=== PATIENT | female | born 1950 | race Caucasian/White ===

== ENCOUNTER 2021-06-30 01:54 | Inpatient (IN) | payer MEDICARE, OTHER ==
[~2021-06-30] VITALS: Ht 172.7 cm; Wt 55.1 kg
[2021-07-01] MEDS ORDERED: ANORO ELLIPTA1 EACH INH (05:20)
[2021-07-01] MEDS ORDERED: HYDROCODON-ACE1 EAC6 PO (05:21)
[2021-07-01] MEDS ORDERED: HYDROCHLOROTHIA25 MG PO (05:21)
[2021-07-01] MEDS ORDERED: LORAZEPAM0.5 MG PO (05:22)
[2021-07-01] MEDS ORDERED: LISINOPRIL20 MG PO (05:22)
[2021-07-01] MEDS ORDERED: COREG 12.5MG12.5 MG PO (05:23)
[2021-07-01] MEDS ORDERED: FEROSUL325 MG PO (05:23)
[2021-07-01] MEDS ORDERED: MELOXICAM15 MG PO ×2 (05:23→10:39)
[2021-07-01] MEDS ORDERED: POTASSIUM CHLO20 ME2 PO (05:24)
[2021-07-01 07:01] LABS: HEMOGLOBIN 9.2 gm/dl (12.3-15.3); RED BLOOD COUNT 3.23 M/UL (4.00-5.10); WHITE BLOOD COUNT 21.2 K/UL (4.5-11.0)
[2021-07-01] MEDS ORDERED: PROZAC 20 MG CA20 MG PO (07:36)
[2021-07-01] MEDS ORDERED: PROAIR HFA8.5 GM INH (10:38)
[2021-07-01] MEDS ORDERED: PHENERGAN 25 MG25 M1 PO (10:40)
[2021-07-02 11:13] LABS: HBSAG SCREEN Negative (Negative); HEP A AB, IGM Negative (Negative); HEP B CORE AB, IGM Negative (Negative); HEP C VIRUS AB <0.1 (0.0-0.9)
[2021-07-03 03:53] LABS: HEMOGLOBIN 7.5 gm/dl (12.3-15.3); RED BLOOD COUNT 2.51 M/UL (4.00-5.10); WHITE BLOOD COUNT 15.5 K/UL (4.5-11.0)
[2021-07-04 08:44] LABS: HEMOGLOBIN 7.4 gm/dl (12.3-15.3); RED BLOOD COUNT 2.49 M/UL (4.00-5.10); WHITE BLOOD COUNT 14.5 K/UL (4.5-11.0)
[2021-07-05 03:27] LABS: HEMOGLOBIN 7.6 gm/dl (12.3-15.3); RED BLOOD COUNT 2.58 M/UL (4.00-5.10); WHITE BLOOD COUNT 13.7 K/UL (4.5-11.0)
[2021-07-06 03:18] LABS: RED BLOOD COUNT 2.45 M/UL (4.00-5.10); WHITE BLOOD COUNT 13.9 K/UL (4.5-11.0)
[2021-07-06 03:21] LABS: HEMOGLOBIN 6.8 gm/dl (12.3-15.3)
--- NOTE | 2021-07-06 17:54 | NUR ---
PATIENT TRANSPORTED TO [facility] PER PCU STAFF AND STUDENT NURSES. ONE UNIT OF BLOOD TO BE GIVEN PER DIALYSIS NURSE.
[2021-07-07 10:14] LABS: WHITE BLOOD COUNT 10.7 K/UL (4.5-11.0)
[2021-07-07 10:16] LABS: HEMOGLOBIN 9.5 gm/dl (12.3-15.3); RED BLOOD COUNT 3.33 M/UL (4.00-5.10)
--- NOTE | 2021-07-07 18:43 | NUR ---
DR MOCTEZUMA NOTIFIED OF PTS C/O RIB PAIN NEW ORDERS RECEIVED
[2021-07-08 04:07] LABS: HEMOGLOBIN 9.3 gm/dl (12.3-15.3); RED BLOOD COUNT 3.23 M/UL (4.00-5.10); WHITE BLOOD COUNT 10.2 K/UL (4.5-11.0)
--- NOTE | 2021-07-08 05:20 | NUR ---
PICC LINE DRESSING CHANGED VIA CLEAN TECHNIQUE. PT TOLERATED VERY WELL.
--- NOTE | 2021-07-08 13:29 | NUR ---
07/08/20 1330 SPOKE WITH DAUGHTER, UPDATED ON PT STATUS, SURGERY, DIALYSIS CATH PLACEMENT, CXR AND START OF ABT FOR PNEUMONIA.
[2021-07-09 04:19] LABS: HEMOGLOBIN 9.1 gm/dl (12.3-15.3); RED BLOOD COUNT 3.08 M/UL (4.00-5.10); WHITE BLOOD COUNT 10.8 K/UL (4.5-11.0)
--- NOTE | 2021-07-09 22:18 | NUR ---
PT ASKING FOR PAIN MEDICIATIONS STATES THAT MEDICINES ARENT HELPING. NOTIFIED DR MOCTEZUMA OF FINDINGS ORDERS RECIEVED.
[2021-07-10 07:21] LABS: HEMOGLOBIN 8.4 gm/dl (12.3-15.3); RED BLOOD COUNT 2.85 M/UL (4.00-5.10); WHITE BLOOD COUNT 10.5 K/UL (4.5-11.0)
--- NOTE | 2021-07-13 15:45 | NUR ---
PT TRASFERRED DOWN FOR DIALYSIS AT THIS TIME.
[2021-07-14 03:46] LABS: HEMOGLOBIN 7.6 gm/dl (12.3-15.3); RED BLOOD COUNT 2.61 M/UL (4.00-5.10); WHITE BLOOD COUNT 5.9 K/UL (4.5-11.0)
[2021-07-15] MEDS ORDERED: AMLODIPINE BESYL5 MG PO (09:58)
[2021-07-15] MEDS ORDERED: CARVEDILOL25 MG PO (09:58)
[2021-07-15] MEDS ORDERED: HYDRALAZINE HCL25 MG PO (09:58)
[2021-07-16 03:24] LABS: HEMOGLOBIN 7.8 gm/dl (12.3-15.3); RED BLOOD COUNT 2.66 M/UL (4.00-5.10)
--- NOTE | 2021-07-16 09:07 | NUR ---
PT TAKEN TO DIALYSIS
[2021-07-17 02:48] LABS: HEMOGLOBIN 7.3 gm/dl (12.3-15.3); RED BLOOD COUNT 2.44 M/UL (4.00-5.10)
[2021-07-17 02:57] LABS: WHITE BLOOD COUNT 4.2 K/UL (4.5-11.0)
[2021-07-18 03:28] LABS: RED BLOOD COUNT 2.27 M/UL (4.00-5.10); WHITE BLOOD COUNT 5.1 K/UL (4.5-11.0)
[2021-07-18 03:36] LABS: HEMOGLOBIN 6.4 gm/dl (12.3-15.3)
[2021-07-19 10:35] LABS: HEMOGLOBIN 7.6 gm/dl (12.3-15.3); WHITE BLOOD COUNT 5.2 K/UL (4.5-11.0)
[2021-07-19 10:39] LABS: RED BLOOD COUNT 2.61 M/UL (4.00-5.10)
[2021-07-19] MEDS ORDERED: HUMIBID LA TAB600 MG PO (12:38)
[2021-07-19] MEDS ORDERED: IPRAT-ALBUT 0.5-3 ML NEB (12:38)
[2021-07-19] MEDS ORDERED: POLYETHYLENE GL17 GM PO (12:38)
[2021-07-19] MEDS ORDERED: DOCUSATE SODIU100 MG PO (12:38)
--- NOTE | 2021-07-19 14:56 | NUR ---
REPORT CALLED TO [facility] TO [facility].
== END 2021-07-19 14:50 | disposition home health service (06) | DRG 673 ==
LOC: CCU 07-01 04:56 → PROG CARE 07-01 04:56
PROVIDERS: Internal Medicine; Internal Medicine Nephrology; ADMIT Internal Medicine
PROC: 5A1D70Z Performance of Urinary Filtration, Intermittent, Less than 6 Hours Per Day (ICD-10-PCS; 2021-07-02)
PROC: 5A1D70Z Performance of Urinary Filtration, Intermittent, Less than 6 Hours Per Day (ICD-10-PCS; 2021-07-03)
PROC: B24BZZZ Ultrasonography of Heart with Aorta (ICD-10-PCS; 2021-07-05)
PROC: 5A1D70Z Performance of Urinary Filtration, Intermittent, Less than 6 Hours Per Day (ICD-10-PCS; 2021-07-05)
PROC: 5A1D70Z Performance of Urinary Filtration, Intermittent, Less than 6 Hours Per Day (ICD-10-PCS; 2021-07-07)
PROC: 0JH63XZ Insertion of Tunneled Vascular Access Device into Chest Subcutaneous Tissue and Fascia, Percutaneous Approach (ICD-10-PCS; principal; 2021-07-08)
PROC: 02HV33Z Insertion of Infusion Device into Superior Vena Cava, Percutaneous Approach (ICD-10-PCS; 2021-07-08)
PROC: B548ZZA Ultrasonography of Superior Vena Cava, Guidance (ICD-10-PCS; 2021-07-08)
PROC: 5A1D70Z Performance of Urinary Filtration, Intermittent, Less than 6 Hours Per Day (ICD-10-PCS; 2021-07-08)
PROC: 5A1D70Z Performance of Urinary Filtration, Intermittent, Less than 6 Hours Per Day (ICD-10-PCS; 2021-07-10)
PROC: 5A0935A Assistance with Respiratory Ventilation, Less than 24 Consecutive Hours, High Flow/Velocity Cannula (ICD-10-PCS; 2021-07-11)
PROC: 5A1D70Z Performance of Urinary Filtration, Intermittent, Less than 6 Hours Per Day (ICD-10-PCS; 2021-07-11)
PROC: 5A1D70Z Performance of Urinary Filtration, Intermittent, Less than 6 Hours Per Day (ICD-10-PCS; 2021-07-13)
PROC: 5A1D70Z Performance of Urinary Filtration, Intermittent, Less than 6 Hours Per Day (ICD-10-PCS; 2021-07-16)
PROC: 5A0945A Assistance with Respiratory Ventilation, 24-96 Consecutive Hours, High Flow/Velocity Cannula (ICD-10-PCS; 2021-07-17)
PROC: 5A1D70Z Performance of Urinary Filtration, Intermittent, Less than 6 Hours Per Day (ICD-10-PCS; 2021-07-17)
PROC: 30233N1 Transfusion of Nonautologous Red Blood Cells into Peripheral Vein, Percutaneous Approach (ICD-10-PCS; 2021-07-18)
PROC: 5A1D70Z Performance of Urinary Filtration, Intermittent, Less than 6 Hours Per Day (ICD-10-PCS; 2021-07-18)
PROC: 5A1D70Z Performance of Urinary Filtration, Intermittent, Less than 6 Hours Per Day (ICD-10-PCS; 2021-07-19)
DX: N17.0 Acute kidney failure with tubular necrosis (principal); J96.21 Acute and chronic respiratory failure with hypoxia; I50.33 Acute on chronic diastolic (congestive) heart failure; J18.9 Pneumonia, unspecified organism; I13.2 Hypertensive heart and chronic kidney disease with heart failure and with stage 5 chronic kidney disease, or end stage renal disease; N30.00 Acute cystitis without hematuria; J44.0 Chronic obstructive pulmonary disease with (acute) lower respiratory infection; B37.0 Candidal stomatitis; R64 Cachexia; E87.1 Hypo-osmolality and hyponatremia; I42.9 Cardiomyopathy, unspecified; Z68.1 Body mass index [BMI] 19.9 or less, adult; N18.6 End stage renal disease; Z20.822 Contact with and (suspected) exposure to COVID-19; E87.6 Hypokalemia; D63.1 Anemia in chronic kidney disease; R79.89 Other specified abnormal findings of blood chemistry; K14.0 Glossitis; F17.210 Nicotine dependence, cigarettes, uncomplicated; M81.0 Age-related osteoporosis without current pathological fracture; I25.10 Atherosclerotic heart disease of native coronary artery without angina pectoris; I08.3 Combined rheumatic disorders of mitral, aortic and tricuspid valves; G89.4 Chronic pain syndrome; F41.9 Anxiety disorder, unspecified; Z96.1 Presence of intraocular lens; I73.9 Peripheral vascular disease, unspecified; Z99.2 Dependence on renal dialysis; Z71.6 Tobacco abuse counseling; Z99.81 Dependence on supplemental oxygen; Z90.710 Acquired absence of both cervix and uterus; Z98.42 Cataract extraction status, left eye; Z98.41 Cataract extraction status, right eye; Z98.890 Other specified postprocedural states; Z80.9 Family history of malignant neoplasm, unspecified; Z87.01 Personal history of pneumonia (recurrent)
CPT/HCPCS: ECHO; 36415; 36600; 71045; 71046; 71110; 71250; 72070; 77001; 80048; 80053; 80074; 80202; 81001; 82550; 82553; 82728; 82803; 82962; 83540; 83550; 83735; 83880; 84100; 84484; 85025; 85027; 86140; 86850; 86900; 86901; 86920; 90935; 90937; 93005; 93306; 94640; 94664; 94760; 97116; 97116-GP-CQ; 97162; 97530-GP-CQ; C1752; C1769; C1788; J1100; J1642; J1644; J2185; J2405; J2704; J3010; J3370; J7030; J7040; J7070; J7120; P9016; P9047; U0002

== ENCOUNTER 2021-07-27 00:44 | Inpatient (IN) | payer MEDICARE, OTHER ==
[~2021-07-27] VITALS: Ht 172.7 cm; Wt 59.9 kg
[~2021-07-27 00:44] MED LIST: AMLODIPINE BESYL5 MG PO; ANORO ELLIPTA1 EACH INH; CARVEDILOL25 MG PO; COREG 12.5MG12.5 MG PO; DOCUSATE SODIU100 MG PO; FEROSUL325 MG PO; HUMIBID LA TAB600 MG PO; HYDRALAZINE HCL25 MG PO; HYDROCHLOROTHIA25 MG PO; HYDROCODON-ACE1 EAC6 PO; IPRAT-ALBUT 0.5-3 ML NEB; LISINOPRIL20 MG PO; LORAZEPAM0.5 MG PO; MELOXICAM15 MG PO; PHENERGAN 25 MG25 M1 PO; POLYETHYLENE GL17 GM PO; POTASSIUM CHLO20 ME2 PO; PROAIR HFA8.5 GM INH; PROZAC 20 MG CA20 MG PO
[2021-07-27 07:39] LABS: HEMOGLOBIN 7.2 gm/dl (12.3-15.3); RED BLOOD COUNT 2.48 M/UL (4.00-5.10); WHITE BLOOD COUNT 6.5 K/UL (4.5-11.0)
[2021-07-27] MEDS ORDERED: PROZAC 20 MG CA20 MG PO (09:40)
[2021-07-27] MEDS ORDERED: CARVEDILOL12.5 MG PO (09:40)
[2021-07-27] MEDS ORDERED: HYDROCHLOROTHIA25 MG PO (09:41)
[2021-07-27] MEDS ORDERED: LISINOPRIL20 MG PO (09:41)
[2021-07-28 03:45] LABS: RED BLOOD COUNT 2.19 M/UL (4.00-5.10); WHITE BLOOD COUNT 11.7 K/UL (4.5-11.0)
[2021-07-28 03:46] LABS: HEMOGLOBIN 6.5 gm/dl (12.3-15.3)
[2021-07-29 04:01] LABS: HEMOGLOBIN 7.3 gm/dl (12.3-15.3); WHITE BLOOD COUNT 12.2 K/UL (4.5-11.0)
[2021-07-29 04:09] LABS: RED BLOOD COUNT 2.52 M/UL (4.00-5.10)
[2021-07-30 02:55] LABS: RED BLOOD COUNT 2.48 M/UL (4.00-5.10); WHITE BLOOD COUNT 12.2 K/UL (4.5-11.0)
[2021-07-30 12:13] LABS: HBSAG SCREEN Negative (Negative); HEP A AB, IGM Negative (Negative); HEP B CORE AB, IGM Negative (Negative); HEP C VIRUS AB <0.1 (0.0-0.9)
--- NOTE | 2021-07-30 22:17 | NUR ---
PT TAKEN TO CT VIA BED WITH RN AND TECH. SHE TOLERATED PROCEDURE VERY WELL.
[2021-07-31 02:59] LABS: HEMOGLOBIN 8.9 gm/dl (12.3-15.3)
[2021-07-31 03:00] LABS: RED BLOOD COUNT 3.1 M/UL (4.00-5.10); WHITE BLOOD COUNT 18.1 K/UL (4.5-11.0)
[2021-08-01 03:23] LABS: HEMOGLOBIN 9.4 gm/dl (12.3-15.3); RED BLOOD COUNT 3.17 M/UL (4.00-5.10); WHITE BLOOD COUNT 21.8 K/UL (4.5-11.0)
[2021-08-01 13:11] LABS: ANTI-DSDNA ANTIBODIES <1 IU/mL (0-9)
[2021-08-02 02:07] LABS: HEMOGLOBIN 8.7 gm/dl (12.3-15.3); RED BLOOD COUNT 2.93 M/UL (4.00-5.10); WHITE BLOOD COUNT 17.4 K/UL (4.5-11.0)
[2021-08-02 11:15] LABS: ANTIGLOMERULAR BM AB 4 units (0-20)
[2021-08-03 02:05] LABS: HEMOGLOBIN 8.2 gm/dl (12.3-15.3); RED BLOOD COUNT 2.75 M/UL (4.00-5.10); WHITE BLOOD COUNT 16.7 K/UL (4.5-11.0)
[2021-08-03 18:13] LABS: ANTIMYELOPEROXIDASE (MPO) ABS <9.0 U/mL (0.0-9.0); ANTIPROTEINASE 3 (PR-3) ABS <3.5 U/mL (0.0-3.5); ATYPICAL PANCA <1:20 titer (Neg:<1:20); CYTOPLASMIC (C-ANCA) <1:20 titer (Neg:<1:20); PERINUCLEAR (P-ANCA) <1:20 titer (Neg:<1:20)
[2021-08-04 07:08] LABS: HEMOGLOBIN 8.7 gm/dl (12.3-15.3); RED BLOOD COUNT 2.89 M/UL (4.00-5.10); WHITE BLOOD COUNT 13.7 K/UL (4.5-11.0)
[2021-08-05 02:26] LABS: RED BLOOD COUNT 2.68 M/UL (4.00-5.10); WHITE BLOOD COUNT 12.1 K/UL (4.5-11.0)
[2021-08-06 02:40] LABS: HEMOGLOBIN 7.6 gm/dl (12.3-15.3); RED BLOOD COUNT 2.49 M/UL (4.00-5.10); WHITE BLOOD COUNT 12.9 K/UL (4.5-11.0)
[2021-08-07 03:31] LABS: RED BLOOD COUNT 2.3 M/UL (4.00-5.10); WHITE BLOOD COUNT 10.1 K/UL (4.5-11.0)
[2021-08-07 03:35] LABS: HEMOGLOBIN 6.8 gm/dl (12.3-15.3)
[2021-08-07 12:39] LABS: HEMOGLOBIN 6.8 gm/dl (12.3-15.3)
[2021-08-08 02:46] LABS: RED BLOOD COUNT 1.6 M/UL (4.00-5.10); WHITE BLOOD COUNT 12.7 K/UL (4.5-11.0)
[2021-08-08 02:47] LABS: HEMOGLOBIN 4.7 gm/dl (12.3-15.3)
[2021-08-08 16:28] LABS: HEMOGLOBIN 10.2 gm/dl (12.3-15.3)
[2021-08-09 02:44] LABS: HEMOGLOBIN 8.9 gm/dl (12.3-15.3); WHITE BLOOD COUNT 13.2 K/UL (4.5-11.0)
[2021-08-09 02:52] LABS: RED BLOOD COUNT 3.14 M/UL (4.00-5.10)
[2021-08-10 03:42] LABS: HEMOGLOBIN 8.1 gm/dl (12.3-15.3); RED BLOOD COUNT 2.84 M/UL (4.00-5.10); WHITE BLOOD COUNT 14.1 K/UL (4.5-11.0)
[2021-08-11 04:50] LABS: HEMOGLOBIN 6.8 gm/dl (12.3-15.3); RED BLOOD COUNT 2.36 M/UL (4.00-5.10); WHITE BLOOD COUNT 9.6 K/UL (4.5-11.0)
[2021-08-11 12:01] LABS: HEMOGLOBIN 7.2 gm/dl (12.3-15.3)
[2021-08-11 20:02] LABS: HEMOGLOBIN 7.9 gm/dl (12.3-15.3)
[2021-08-11 20:10] LABS: RED BLOOD COUNT 2.75 M/UL (4.00-5.10); WHITE BLOOD COUNT 12.3 K/UL (4.5-11.0)
[2021-08-12 04:08] LABS: WHITE BLOOD COUNT 10.2 K/UL (4.5-11.0)
[2021-08-12 04:26] LABS: HEMOGLOBIN 6.8 gm/dl (12.3-15.3); RED BLOOD COUNT 2.36 M/UL (4.00-5.10)
[2021-08-12 12:06] LABS: HEMOGLOBIN 7.4 gm/dl (12.3-15.3)
[2021-08-13 02:49] LABS: RED BLOOD COUNT 2.31 M/UL (4.00-5.10); WHITE BLOOD COUNT 10.7 K/UL (4.5-11.0)
[2021-08-13 03:00] LABS: HEMOGLOBIN 6.7 gm/dl (12.3-15.3)
--- NOTE | 2021-08-13 03:01 | NUR ---
CALLED [facility] TO DR KENYON. PT TO GET DIAYLSIS TODAY AND PER DR URBAN BLOOD TO BE GIVEN DURING DIAYLSIS.
[2021-08-13 20:56] LABS: HEMOGLOBIN 8.2 gm/dl (12.3-15.3)
[2021-08-14 04:25] LABS: HEMOGLOBIN 7.5 gm/dl (12.3-15.3); RED BLOOD COUNT 2.54 M/UL (4.00-5.10)
--- NOTE | 2021-08-14 08:42 | NUR ---
0830 TITRATED PT HFNC SLOWLY FROM 4 L TO 15 WHILE PT WAS SOB IN TRIPOD POSITION AT SIDE OF BED. CALLED RESPIRATORY TO BRING BIPAP THAT PT ALREADY HAS STANDING ORDERS FOR. RT CAME TO BEDSIDE TO GIVE PT BREATHING TX. PT SAT IMPROVED FROM 79% TO 92% ALREADY. WCTM . WILL NOTIFY
--- NOTE | 2021-08-15 08:26 | NUR ---
SPOKE TO LUCIO SHIPMAN, ABOUT RE-CONSULT. SHE WILL DISCUSS WITH JARETT.
[2021-08-15 09:45] LABS: HEMOGLOBIN 7.7 gm/dl (12.3-15.3); RED BLOOD COUNT 2.62 M/UL (4.00-5.10)
[2021-08-15 09:53] LABS: WHITE BLOOD COUNT 11.9 K/UL (4.5-11.0)
[2021-08-15 18:22] LABS: BODY FLUID SOURCE PLEURAL
[2021-08-15 18:24] LABS: MONONUCLEAR CELLS 85 (75-100); POLYMORPHONUCLEAR % 15 (0-25); RBC (AUTOMATED) 300 (0-100000); WBC (AUTOMATED) 81 (0-500)
[2021-08-15 18:32] LABS: LDH, BODY FLUID 54 U/L; TOTAL PROTEIN, BODY FLUID 1.4 gm/dL
[2021-08-16 04:29] LABS: RED BLOOD COUNT 2.4 M/UL (4.00-5.10); WHITE BLOOD COUNT 12.8 K/UL (4.5-11.0)
[2021-08-16 05:10] LABS: HEMOGLOBIN 6.9 gm/dl (12.3-15.3)
--- NOTE | 2021-08-16 11:26 | NUR ---
PATIENT DRESSING TO COCCYX CHANGED, WOUND WITH SLOUGH IN BASE PINK EDGES. PATIENT TOLERATED DRESSING CHANGE WELL
[2021-08-17 10:12] LABS: RED BLOOD COUNT 2.21 M/UL (4.00-5.10); WHITE BLOOD COUNT 12.3 K/UL (4.5-11.0)
[2021-08-17 10:16] LABS: HEMOGLOBIN 6.5 gm/dl (12.3-15.3)
--- NOTE | 2021-08-17 11:32 | NUR ---
PER MD MARQUEZ GIVE PATIENT 2 U PRBC'S DURING DIALYSIS TODAY. DIALYSIS STAFF AWARE, UNIT ONE INFUSING.
--- NOTE | 2021-08-17 13:52 | NUR ---
PATIENT RETURNS TO FLOOR FROM DIALYSIS. SHE HAD 3LITERS REMOVED. PATIENT TOLERATED WELL. ORDERED TRAY. WILL CONTINUE TO MONITOR
[2021-08-17 14:34] LABS: WHITE BLOOD COUNT 9.6 K/UL (4.5-11.0)
[2021-08-17 14:37] LABS: HEMOGLOBIN 10.8 gm/dl (12.3-15.3); RED BLOOD COUNT 3.73 M/UL (4.00-5.10)
[2021-08-18 08:41] LABS: RED BLOOD COUNT 3.86 M/UL (4.00-5.10)
[2021-08-18 08:42] LABS: WHITE BLOOD COUNT 12.9 K/UL (4.5-11.0)
[2021-08-19 04:26] LABS: HEMOGLOBIN 9.8 gm/dl (12.3-15.3); RED BLOOD COUNT 3.48 M/UL (4.00-5.10); WHITE BLOOD COUNT 11.4 K/UL (4.5-11.0)
[2021-08-20 03:22] LABS: HEMOGLOBIN 10.5 gm/dl (12.3-15.3); RED BLOOD COUNT 3.63 M/UL (4.00-5.10); WHITE BLOOD COUNT 10.8 K/UL (4.5-11.0)
[2021-08-22 04:18] LABS: HEMOGLOBIN 9.5 gm/dl (12.3-15.3); RED BLOOD COUNT 3.33 M/UL (4.00-5.10); WHITE BLOOD COUNT 8.9 K/UL (4.5-11.0)
[2021-08-23 03:58] LABS: RED BLOOD COUNT 3.5 M/UL (4.00-5.10); WHITE BLOOD COUNT 8.7 K/UL (4.5-11.0)
[2021-08-23 09:15] LABS: HBSAG SCREEN Negative (Negative); HEP A AB, IGM Negative (Negative); HEP B CORE AB, IGM Negative (Negative); HEP C VIRUS AB <0.1 (0.0-0.9)
[2021-08-23] MEDS ORDERED: IPRAT-ALBUT 0.5-3 ML NEB (11:43)
[2021-08-23] MEDS ORDERED: MEGACE 400400 MG/10 PO (11:43)
[2021-08-23] MEDS ORDERED: SANDOSTATI100 MCG/ML SC (11:43)
[2021-08-23] MEDS ORDERED: PROTONIX 40 MG40 M1 PO (11:43)
[2021-08-23] MEDS ORDERED: RENO CAPS SOFTGE1 MG PO (11:43)
[2021-08-23] MEDS ORDERED: CARVEDILOL25 MG PO (11:43)
[2021-08-23] MEDS ORDERED: BUPROPION HCL75 MG PO (11:43)
[2021-08-23] MEDS ORDERED: AMLODIPINE BESYL5 MG PO (11:43)
[2021-08-23] MEDS ORDERED: ACETAMINOPHEN325 MG PO (11:43)
== END 2021-08-24 10:10 | DRG 291 ==
LOC: PROG CARE 04:17
PROVIDERS: Internal Medicine; Internal Medicine Infectious Disease; Internal Medicine Nephrology; ADMIT Internal Medicine
PROC: 5A1D70Z Performance of Urinary Filtration, Intermittent, Less than 6 Hours Per Day (ICD-10-PCS; principal; 2021-07-28)
PROC: 5A09357 Assistance with Respiratory Ventilation, Less than 24 Consecutive Hours, Continuous Positive Airway Pressure (ICD-10-PCS; 2021-07-28)
PROC: 5A0945A Assistance with Respiratory Ventilation, 24-96 Consecutive Hours, High Flow/Velocity Cannula (ICD-10-PCS; 2021-07-28)
PROC: 5A1D70Z Performance of Urinary Filtration, Intermittent, Less than 6 Hours Per Day (ICD-10-PCS; 2021-07-30)
PROC: 30233N1 Transfusion of Nonautologous Red Blood Cells into Peripheral Vein, Percutaneous Approach (ICD-10-PCS; 2021-07-30)
PROC: 5A09357 Assistance with Respiratory Ventilation, Less than 24 Consecutive Hours, Continuous Positive Airway Pressure (ICD-10-PCS; 2021-07-31)
PROC: 5A0935A Assistance with Respiratory Ventilation, Less than 24 Consecutive Hours, High Flow/Velocity Cannula (ICD-10-PCS; 2021-07-31)
PROC: 0B9M8ZZ Drainage of Bilateral Lungs, Via Natural or Artificial Opening Endoscopic (ICD-10-PCS; 2021-07-31)
PROC: 5A1D70Z Performance of Urinary Filtration, Intermittent, Less than 6 Hours Per Day (ICD-10-PCS; 2021-08-01)
PROC: 5A09357 Assistance with Respiratory Ventilation, Less than 24 Consecutive Hours, Continuous Positive Airway Pressure (ICD-10-PCS; 2021-08-02)
PROC: 5A1D70Z Performance of Urinary Filtration, Intermittent, Less than 6 Hours Per Day (ICD-10-PCS; 2021-08-03)
PROC: 0DH67UZ Insertion of Feeding Device into Stomach, Via Natural or Artificial Opening (ICD-10-PCS; 2021-08-05)
PROC: 3E0G76Z Introduction of Nutritional Substance into Upper GI, Via Natural or Artificial Opening (ICD-10-PCS; 2021-08-05)
PROC: 5A0945A Assistance with Respiratory Ventilation, 24-96 Consecutive Hours, High Flow/Velocity Cannula (ICD-10-PCS; 2021-08-08)
PROC: 0W3P8ZZ Control Bleeding in Gastrointestinal Tract, Via Natural or Artificial Opening Endoscopic (ICD-10-PCS; 2021-08-09)
PROC: 0DP6XUZ Removal of Feeding Device from Stomach, External Approach (ICD-10-PCS; 2021-08-09)
PROC: 0DH68UZ Insertion of Feeding Device into Stomach, Via Natural or Artificial Opening Endoscopic (ICD-10-PCS; 2021-08-09)
PROC: 3E0G76Z Introduction of Nutritional Substance into Upper GI, Via Natural or Artificial Opening (ICD-10-PCS; 2021-08-09)
PROC: 5A1D70Z Performance of Urinary Filtration, Intermittent, Less than 6 Hours Per Day (ICD-10-PCS; 2021-08-10)
PROC: 5A1D70Z Performance of Urinary Filtration, Intermittent, Less than 6 Hours Per Day (ICD-10-PCS; 2021-08-13)
PROC: 5A09357 Assistance with Respiratory Ventilation, Less than 24 Consecutive Hours, Continuous Positive Airway Pressure (ICD-10-PCS; 2021-08-14)
PROC: 5A1D70Z Performance of Urinary Filtration, Intermittent, Less than 6 Hours Per Day (ICD-10-PCS; 2021-08-15)
PROC: 5A0935A Assistance with Respiratory Ventilation, Less than 24 Consecutive Hours, High Flow/Velocity Cannula (ICD-10-PCS; 2021-08-15)
PROC: 0W993ZZ Drainage of Right Pleural Cavity, Percutaneous Approach (ICD-10-PCS; 2021-08-15)
PROC: BB4BZZZ Ultrasonography of Pleura (ICD-10-PCS; 2021-08-15)
PROC: 5A09357 Assistance with Respiratory Ventilation, Less than 24 Consecutive Hours, Continuous Positive Airway Pressure (ICD-10-PCS; 2021-08-16)
PROC: 5A0935A Assistance with Respiratory Ventilation, Less than 24 Consecutive Hours, High Flow/Velocity Cannula (ICD-10-PCS; 2021-08-16)
PROC: 5A1D70Z Performance of Urinary Filtration, Intermittent, Less than 6 Hours Per Day (ICD-10-PCS; 2021-08-17)
PROC: 5A09457 Assistance with Respiratory Ventilation, 24-96 Consecutive Hours, Continuous Positive Airway Pressure (ICD-10-PCS; 2021-08-17)
PROC: 5A0935A Assistance with Respiratory Ventilation, Less than 24 Consecutive Hours, High Flow/Velocity Cannula (ICD-10-PCS; 2021-08-18)
PROC: 5A09357 Assistance with Respiratory Ventilation, Less than 24 Consecutive Hours, Continuous Positive Airway Pressure (ICD-10-PCS; 2021-08-19)
PROC: 5A0935A Assistance with Respiratory Ventilation, Less than 24 Consecutive Hours, High Flow/Velocity Cannula (ICD-10-PCS; 2021-08-19)
PROC: 5A09357 Assistance with Respiratory Ventilation, Less than 24 Consecutive Hours, Continuous Positive Airway Pressure (ICD-10-PCS; 2021-08-19)
PROC: 5A0935A Assistance with Respiratory Ventilation, Less than 24 Consecutive Hours, High Flow/Velocity Cannula (ICD-10-PCS; 2021-08-20)
PROC: 5A09357 Assistance with Respiratory Ventilation, Less than 24 Consecutive Hours, Continuous Positive Airway Pressure (ICD-10-PCS; 2021-08-20)
PROC: 5A0935A Assistance with Respiratory Ventilation, Less than 24 Consecutive Hours, High Flow/Velocity Cannula (ICD-10-PCS; 2021-08-20)
PROC: 5A09357 Assistance with Respiratory Ventilation, Less than 24 Consecutive Hours, Continuous Positive Airway Pressure (ICD-10-PCS; 2021-08-22)
PROC: 5A0935A Assistance with Respiratory Ventilation, Less than 24 Consecutive Hours, High Flow/Velocity Cannula (ICD-10-PCS; 2021-08-22)
PROC: 5A09357 Assistance with Respiratory Ventilation, Less than 24 Consecutive Hours, Continuous Positive Airway Pressure (ICD-10-PCS; 2021-08-22)
PROC: 5A0935A Assistance with Respiratory Ventilation, Less than 24 Consecutive Hours, High Flow/Velocity Cannula (ICD-10-PCS; 2021-08-22)
PROC: 5A09357 Assistance with Respiratory Ventilation, Less than 24 Consecutive Hours, Continuous Positive Airway Pressure (ICD-10-PCS; 2021-08-23)
PROC: 5A0945A Assistance with Respiratory Ventilation, 24-96 Consecutive Hours, High Flow/Velocity Cannula (ICD-10-PCS; 2021-08-23)
DX: I13.2 Hypertensive heart and chronic kidney disease with heart failure and with stage 5 chronic kidney disease, or end stage renal disease (principal); N18.6 End stage renal disease; I50.33 Acute on chronic diastolic (congestive) heart failure; K31.811 Angiodysplasia of stomach and duodenum with bleeding; J18.9 Pneumonia, unspecified organism; J96.21 Acute and chronic respiratory failure with hypoxia; J96.22 Acute and chronic respiratory failure with hypercapnia; J69.0 Pneumonitis due to inhalation of food and vomit; E43 Unspecified severe protein-calorie malnutrition; R04.2 Hemoptysis; D62 Acute posthemorrhagic anemia; J44.0 Chronic obstructive pulmonary disease with (acute) lower respiratory infection; N17.9 Acute kidney failure, unspecified; J90 Pleural effusion, not elsewhere classified; J44.1 Chronic obstructive pulmonary disease with (acute) exacerbation; E87.1 Hypo-osmolality and hyponatremia; E87.2 Acidosis; Z20.822 Contact with and (suspected) exposure to COVID-19; Z66 Do not resuscitate; F17.210 Nicotine dependence, cigarettes, uncomplicated; M06.9 Rheumatoid arthritis, unspecified; R62.7 Adult failure to thrive; M19.90 Unspecified osteoarthritis, unspecified site; L89.152 Pressure ulcer of sacral region, stage 2; L89.312 Pressure ulcer of right buttock, stage 2; M81.0 Age-related osteoporosis without current pathological fracture; F41.9 Anxiety disorder, unspecified; I73.9 Peripheral vascular disease, unspecified; I27.20 Pulmonary hypertension, unspecified; D63.1 Anemia in chronic kidney disease; I48.91 Unspecified atrial fibrillation; R53.81 Other malaise; K59.00 Constipation, unspecified; E87.5 Hyperkalemia; Z99.2 Dependence on renal dialysis; Z99.81 Dependence on supplemental oxygen; Z90.710 Acquired absence of both cervix and uterus; Z98.42 Cataract extraction status, left eye; Z98.41 Cataract extraction status, right eye; Z98.890 Other specified postprocedural states; Z91.15 Patient's noncompliance with renal dialysis; Z80.9 Family history of malignant neoplasm, unspecified; Z79.01 Long term (current) use of anticoagulants; Z51.5 Encounter for palliative care; Z68.22 Body mass index [BMI] 22.0-22.9, adult
CPT/HCPCS: 36415; 36600; 71045; 71275; 74018; 80048; 80053; 80074; 82150; 82550; 82553; 82607; 82728; 82746; 82803; 82945; 82962; 83036; 83520; 83540; 83550; 83605; 83615; 83735; 83880; 83986; 84100; 84132; 84157; 84439; 84443; 84484; 85014; 85018; 85025; 85027; 85610; 85652; 86038; 86140; 86225; 86256; 86850; 86900; 86901; 86920; 87015; 87040; 87070; 87081; 87116; 87205; 87206; 87252; 89051; 90935; 90937; 92610; 93005; 94640; 94660; 94664; 94760; 97116; 97116-GP-CQ; 97161; 97530; 97530-GP-CQ; A6212; C9113; G0257; J0360; J1335; J1644; J1756; J1940; J2185; J2250; J2310; J2354; J2405; J2920; J7030; J7050; P9016; P9047; Q4081; Q5106; Q9967; U0002